=== PATIENT | female | born 1990 | race Caucasian/White ===

== ENCOUNTER 2019-11-19 15:49 | Inpatient (IN) | payer OTHER ==
[2019-11-19] MEDS ORDERED: miSOPROStoL 100 MCG TAB VAG SCH (16:00)
[2019-11-19] MEDS ORDERED: Ringers Lactate 1,000 ML IV PRN (16:14)
[2019-11-19] MEDS ORDERED: METHYLERGONOVINE 0.2MG/ML AMP IM PRN (16:14)
[2019-11-19] MEDS ORDERED: BUTORPHANOL 1 MG/ML INJ IV PRN (16:14)
[2019-11-19] MEDS ORDERED: CARBOPROST TROME 250 MCG/ML IM PRN (16:14)
[2019-11-19] MEDS ORDERED: PROMETHAZINE INJ 25 MG/ML AMP IM PRN (16:14)
[2019-11-19 16:46] LABS: Absolute Lymphocytes (CBC) 2.1 K/uL (0.7-4.9); Basophils % 0.4 % (0-1.3); Hematocrit 31.4 % (36.0-45.0); Lymphocytes % 18.3 % (15.3-44.8); MPV 9.9 fL (7.6-11.3); RBC Red Blood Cell Count 3.95 M/uL (3.86-4.86)
[2019-11-19 16:47] LABS: Urine Appearance CLOUDY; Urine Bilirubin NEGATIVE (NEG); Urine Blood 3+ (NEG); Urine Color YELLOW; Urine Glucose NEGATIVE (NEG); Urine Protein 1+ (NEG); Urine Urobilinogen 0.2 mg/dL (0.2-1.0)
[2019-11-19 16:51] LABS: Urine Microscopic Reflex ORDER UMIC
[2019-11-19] MEDS ORDERED: Ringers Lactate 1,000 ML IV SCH (17:00)
[2019-11-19] MEDS ORDERED: OXYTOCIN/LR 20 UNIT/1,000 ML BAG IV SCH (17:00)
[2019-11-19 17:09] LABS: Urine Bacteria 20-50 /HPF (<20); Urine Culture Reflex Order REFLEXED; Urine RBC <5 /HPF (NONE SEEN)
[2019-11-19 17:28] VITALS: BMI 34.7
[2019-11-19] MEDS ORDERED: MAGNESIUM SULF/STERILE WATER 1,000 ML IV SCH (18:00)
[2019-11-19] MEDS ORDERED: ZOLPIDEM TARTRATE 10 MG TABLET PO ONE (19:55)
[2019-11-19 20:36] LABS: RPR (Rapid Plasma Reagin) NON-REACT (NON-REACT)
--- NOTE | 2019-11-19 21:46 | PREOPHP ---
Date of Admission: 11/19/2019 A 28-year-old primigravida, at 39 weeks. Rh positive, immune to Rubella. Negative beta strep screen . For Cytotec labor induction. 1.5 cm, 50% effaced, vertex, well applied -1 station. 50 mcg of Cyt otec inserted. We will insert 50 mcg every 6 hours for a total of 3 doses unless rupture of membrane s occurs and then of course, oxytocin will be started. FHT is normal, reactive. Patient is unaware of any contractions she is having at this point. Full labor and Cytotec talk given. Anticipate more rapid progress tomorrow. NOHEMI/FELICIA Voice ID: [id number]
[2019-11-20] MEDS ORDERED: INFLUENZA VACCINE (for 3y+) 0.5 ML DOSE IMVAC ONE (08:00)
[2019-11-20] MEDS ORDERED: BUPIVACAINE 0.25% PF 30 ML VIAL ONE (09:01)
[2019-11-20] MEDS ORDERED: FENTANYL CITR 100 MCG/2 ML ONE (09:06)
[2019-11-20] MEDS ORDERED: LIDOCAINE 1% MPF 30 ML VIAL ONE (09:09)
[2019-11-20] MEDS ORDERED: METHYLERGONOVINE 0.2MG/ML AMP IM ONE (09:09)
[2019-11-20] MEDS ORDERED: CARBOPROST TROME 250 MCG/ML IM ONE (09:09)
[2019-11-20] MEDS ORDERED: BISACODYL 10 MG RECTAL SUPP RECT PRN (10:07)
[2019-11-20] MEDS ORDERED: ACETAMINOPHEN 500 MG TAB PO PRN (10:07)
[2019-11-20] MEDS ORDERED: Oxycodone HCl/Acetaminophen 1 TAB TAB PO PRN ×2 (10:07)
[2019-11-20] MEDS ORDERED: DIPHENHYDRAMINE 25 MG TAB/CAP PO PRN (10:07)
[2019-11-20] MEDS ORDERED: DOCUSATE NA/SENNA CONC 1 TAB PO PRN (10:07)
--- NOTE | 2019-11-20 10:40 | PN ---
Patient is now 2.5 cm, 70% effaced, vertex, well applied -1 station. Rupture of membranes, clear flu id. FHTs normal, reactive. Patient basically slept through the night, took Ambien, is still somewha t groggy, but this should wear off fairly soon. She was started on magnesium sulfate and the magnesi um level was 5.4, well within the therapeutic range. Full discussion about pre-eclampsia with patien t and . Blood pressures have moderated, in fact, this morning are completely normal. We will see as the labor progresses. If her protein returns to negative and blood pressures stayed normal, we may discontinue the magnesium sulfate, at this time though I think we will continue. Anticipate m ore rapid progress. Epidural anesthesia probably at 4 cm if the patient can wait that long. Right n ow though she is completely comfortable and not even aware of her contractions. NOHEMI/FELICIA Voice ID: [id number] Report ID: [id number]
--- NOTE | 2019-11-20 10:41 | PN ---
Patient was given dose of Stadol 1 mg IV, Phenergan 25 mg IM. She had Ambien last night. Patient is very lethargic. I have ordered a pulse oximeter, could be placed. We will watch her carefully, but her breathing pattern is normal at this point. If she needs more medications, we will go with the e pidural and get her more alert. She has made good progress. She is now 3.5 cm, 80% effaced, vertex, 0 almost +1 station. I think we are getting ready to go into the active phase. NOHEMI/FELICIA Voice ID: [id number] Report ID: [id number]
[2019-11-20] MEDS ORDERED: OXYTOCIN/LR 20 UNIT/1,000 ML BAG IV SCH (11:00)
[2019-11-20] MEDS: IBUPROFEN 600 MG TAB PO PRN ×2 (13:38→22:42)
[2019-11-20] MEDS: PHENOBARBITAL 32.4 MG TABLET PO SCH ×2 (13:39→22:40)
[2019-11-20] MEDS ORDERED: Ringers Lactate 0 ML IV ONE (16:39)
[2019-11-20] MEDS ORDERED: miSOPROStoL 100 MCG TAB ONE (16:41)
--- NOTE | 2019-11-20 20:37 | OP ---
Surgeon: Griffin Larson MD This is a 28-year-old primigravida, 39 weeks when she had such as Cytotec inserted x3 doses, received Ambien 10 mg during the night. This really obtunded the patient and she remained lethargic througho ut the rest of the labor at 4-5 cm, was given Stadol 1 mg IV, Phenergan 25 mg IM, went rapidly to com plete. Had spinal block anesthesia with fentanyl by Dr. Malcolm. Noted to have deep decelerations t o 60 beats a minute. Was prepped and draped. Patient pushed very effectively. Vacuum extraction wa s performed and midline second degree episiotomy was performed. 6 pounds 2-ounce male was del ivered. Nuchal cord x1. Apgars 6 and 8. Schultze delivery of placenta, which inspected and noted b e intact and normal. Estimated blood loss 350 to 400 cc. Episiotomy repaired with 2-0 chromic. Pat ient tolerated all procedures well. Rh positive, immune to Rubella. Negative beta strep screen. Final Diagnoses: Term intrauterine , Cytotec for cervical ripening, labor induction, vagina l delivery, spinal block anesthesia, vacuum suction assisted delivery, nuchal cord x1. NBC/MODL Voice ID: [id number] Report ID: [id number]
[2019-11-21] MEDS ORDERED: Ringers Lactate 1,000 ML IV ONE (10:59)
[2019-11-21 12:10] VITALS: BP 136/94; TEMP 98.3
--- NOTE | 2019-11-21 22:18 | DS ---
Date of Discharge: 11/21/2019 History: A 28-year-old primigravida 39 weeks, had Cytotec inserted. Next morning rupture of membran es, Pitocin augmentation, went into an active labor. Had Stadol 1 mg IV, Phenergan 25 mg IM during t he labor, followed by spinal block anesthesia with fentanyl for the latter stage of labor. Had signi ficant decelerations noted. Nuchal cord suspected. Vacuum assisted delivery of a 6-pound 2-ounce ma le , indeed nuchal cord x1. Apgars 6 and 8. Baby has subsequently done quite well and is read y for dismissal. Second-degree midline episiotomy performed, repaired with 2-0 chromic. Bertha jones of the placenta. Estimated blood loss 350-400 mL. Rh positive, immune to Rubella. Negative beta strep screen. ; afebrile, ambulating and voiding. Lochia is normal. Patient had ini tial elevation of blood pressures and protein in the urine, but it was clean-catch. Subsequently, he r blood pressures have come down to normal. Protein was negative. Reflexes are normal. Magnesium s ulfate was discontinued and I do not think she needs phenobarbital from this point forward. Dismisse d with tramadol for analgesia, although she will probably take Motrin instead. Final Diagnoses: Intrauterine gestation, 39 weeks. Cytotec instillation. Vaginal delivery at 39 we eks and 1 day. Nuchal cord, spinal block anesthesia. Preeclampsia, resolved. NOHEMI/MODL Voice ID: [id number] Report ID: [id number]
[2019-11-23 05:12] LABS: HBsAG Nonreactive (Nonreactive)
== END 2019-11-21 13:45 | disposition home or self-care (01) | DRG 807 ==
LOC: 2ND-WC 15:49
PROVIDERS: ADMIT Specialist; ATTEND Specialist
PROC: 3E0P7VZ Introduction of Hormone into Female Reproductive, Via Natural or Artificial Opening (ICD-10-PCS; principal; 2019-11-19)
PROC: 10D07Z6 Extraction of Products of Conception, Vacuum, Via Natural or Artificial Opening (ICD-10-PCS; 2019-11-20)
PROC: 0W8NXZZ Division of Female Perineum, External Approach (ICD-10-PCS; 2019-11-20)
PROC: 3E0234Z Introduction of Serum, Toxoid and Vaccine into Muscle, Percutaneous Approach (ICD-10-PCS; 2019-11-20)
DX: O75.89 Other specified complications of labor and delivery (principal); Z37.0 Single live birth; Z67.90 Unspecified blood type, Rh positive; Z3A.39 39 weeks gestation of pregnancy
CPT/HCPCS: 36415; 81003; 81015; 83735; 85025; 86592; 86901; 87086; 87088; 87340; J0595; J2210; J2550; J2590; J3010; J3475; J7120